=== PATIENT | female | born 1950 | race Caucasian/White ===

== ENCOUNTER 2016-09-26 08:29 | Outpatient (CLI) | payer MEDICARE ==
[2016-09-26 09:46] LABS: ALT (SGPT) 21 U/L (8-55); AST (SGOT) 20 U/L (5-34); Alkaline Phosphatase 53 U/L (40-150); Anion Gap 14 mmol/L (10-20); Bilirubin, Direct 0.2 mg/dL (0.1-0.3); Bilirubin, Total 0.4 mg/dL (0.2-1.2); Calc. Creatinine Clearance 0 mL/min (70-130); Calcium 9.3 mg/dL (7.8-10.44); Carbon Dioxide 22 mmol/L (23-31); Cardiac Risk 2.2 (Less than 4.5); Chloride 107 mmol/L (98-107); Cholesterol 138 mg/dL (< 200 Desired); Estimated GFR-MDRD Greater than 90; Glucose 97 mg/dL (80-115); HDL Cholesterol 64 mg/dL (>60 Neg Risk); LDL Cholesterol, Calculated 65 mg/dL; Potassium 4.6 mmol/L (3.5-5.1); Protein, Total 7.1 g/dL (5.8-8.1); Sodium 138 mmol/L (136-145); Triglycerides 43 mg/dL (Less than 150)
[2016-09-26 10:12] LABS: #Basophils 0.1 thou/uL (0.0-0.2); #Eosinphils 0.2 thou/uL (0.0-0.7); #Lymphocytes 2.5 thou/uL (1.20-3.40); #Monocytes 0.6 thou/uL (0.11-0.59); #Neutrophils 3.2 thou/uL (1.40-6.50); %Basophils 0.8 % (0.0-1.0); %Eosinophils 3.6 % (0.0-10.0); %Lymphocytes 38.4 % (21.0-51.0); %Monocytes 8.3 % (0.0-10.0); %Neutrophils 48.9 % (42.0-75.0); Hemoglobin 13.9 g/dL (12.0-16.0); Mean Corpuscular HGB CONC 33.1 g/dL (32.0-36.0); Mean Corpuscular Hemoglobin 28.7 pg (27.0-31.0); Mean Corpuscular Volume 86.8 fl (81.0-99.0); Mean Platelet Volume 11.5 fL (7.4-10.4); Platelet Count 182 thou/uL (130-400); RBC Distribution Width 13.3 % (11.5-14.5); Red Blood Cell (RBC) Count 4.85 mill/uL (4.20-5.40); White Blood Cell (WBC) Count 6.5 thou/uL (4.8-10.8)
[2016-09-26 11:13] LABS: BUN (Urea Nitrogen) 13 mg/dL (9.8-20.1)
== END 2016-09-26 08:30 | disposition home or self-care (01) ==
LOC: MADLABBHPM 08:29
PROVIDERS: ATTEND Family Medicine
DX: I25.10 Atherosclerotic heart disease of native coronary artery without angina pectoris (principal)
CPT/HCPCS: 36415; 80048; 80061; 80076; 85025

== ENCOUNTER 2018-01-16 08:55 | Outpatient (CLI) | payer MEDICARE ==
[2018-01-16 10:31] LABS: INR-International Normal Ratio 0.9; Prothrombin Time 12.7 SEC (12.0-14.7)
[2018-01-16 10:41] LABS: #Eosinphils 0.2 thou/uL (0.0-0.7); #Lymphocytes 1.8 thou/uL (1.20-3.40); #Monocytes 0.4 thou/uL (0.11-0.59); #Neutrophils 2.7 thou/uL (1.40-6.50); %Basophils 0.6 % (0.0-1.0); %Eosinophils 3.2 % (0.0-10.0); %Lymphocytes 35.6 % (21.0-51.0); %Monocytes 8.2 % (0.0-10.0); %Neutrophils 52.4 % (42.0-75.0); Mean Corpuscular HGB CONC 32.3 g/dL (32.0-36.0); Mean Corpuscular Hemoglobin 26.4 pg (27.0-31.0); Mean Platelet Volume 7.9 fL (7.4-10.4); Platelet Count 213 thou/uL (130-400); RBC Distribution Width 13.1 % (11.5-14.5); White Blood Cell (WBC) Count 5.2 thou/uL (4.8-10.8)
== END 2018-01-16 08:56 | disposition home or self-care (01) ==
LOC: MADLABBHPM 08:55
PROVIDERS: ATTEND Family Medicine
DX: I48.91 Unspecified atrial fibrillation (principal); E78.00 Pure hypercholesterolemia, unspecified
CPT/HCPCS: 36415; 80061; 85025; 85610